=== PATIENT | male | born 1985 | race Caucasian/White ===

== ENCOUNTER → 2019-12-10 | Outpatient (CLI) | payer SELFPAY ==
--- NOTE | 2019-12-10 11:19 | RAD ---
PA and lateral chest. HISTORY: Cough, chest pain PA and lateral views were taken of the chest. Lungs are clear. Heart is normal in size. There is no pleural effusion. IMPRESSION: 1. No acute chest disease. Electronically signed by: Dm Fam MD (12/10/2019 11:16 AM) [id number]
== END ==
LOC: DXRAD 10:59
PROVIDERS: ATTEND Family Medicine
DX: R07.89 Other chest pain (principal)
CPT/HCPCS: 71046